=== PATIENT | male | born 1990 | race African-American/Black ===

== ENCOUNTER 2018-02-01 01:39 | Emergency (ER) | payer BC ==
[2018-02-01 02:23] VITALS: BP 128/72; PULSE 77; TEMP 98.3; BMI 25.1
[2018-02-01 02:37] LABS: URINE APPEARANCE CLEAR; URINE BILIRUBIN NEGATIVE (<2.0 mg/dL); URINE COLOR LTYELLOW; URINE GLUCOSE (UA) NEGATIVE (NEGATIVE); URINE KETONE NEGATIVE (NEGATIVE); URINE LEUK ESTERASE NEGATIVE (NEGATIVE); URINE NITRITE NEGATIVE (NEGATIVE); URINE PROTEIN NEGATIVE (NEGATIVE)
--- NOTE | 2018-02-01 03:09 | PDOC ---
History of Present Illness - General Chief Complaint: Pain Stated Complaint: GENTIAL PAIN Time Seen by Provider: 02/01/18 01:49 History Source: Patient Exam Limitations: No Limitations - History of Present Illness Initial Comments: 02/01/18 03:12 28 yo M w a hx of asthma is here after 3 days of a rash on his penis. The rash is painful and wakes him up from sleep at night. He tried using A&D cream for the rash but it made it worse. He denies any hx of STD's He is sexually active in a monogomous relationship. Denies any recent fevers, chills, or infections. Denies dysuria, urgency, frequency. 02/01/18 03:13 02/01/18 04:43 02/01/18 04:43 Timing/Duration: 1 week Severity: mild Associated Symptoms: reports: denies symptoms Past History - Past Medical History Allergies/Adverse Reactions: Allergies Allergy/AdvReac Type Severity Reaction Status Date / Time No Known Allergies Allergy Verified 02/01/18 02:21 Home Medications: Ambulatory Orders Doxycycline Hyclate 100 mg PO BID #14 tablet 02/01/18 Doxycycline Hyclate 100 mg PO BID #14 tablet 02/01/18 Asthma: Yes COPD: No - Immunization History Immunization Up to Date: Yes - Suicide/Smoking/Psychosocial Hx Smoking History: Never smoked Have you smoked in the past 12 months: No Information on smoking cessation initiated: No Hx Alcohol Use: No Drug/Substance Use Hx: No Substance Use Type: None Review of Systems - Review of Systems Comments:: 02/01/18 04:44 Absent: fever, chills, diaphoresis, generalized weakness, malaise, loss of appetite HEENT: Absent: rhinorrhea, nasal congestion, throat pain, throat swelling, difficulty swallowing, mouth swelling, ear pain, eye pain, visual Changes CARDIOVASCULAR: Absent: chest pain, syncope, palpitations, irregular heart rate, lightheadedness , peripheral edema RESPIRATORY: Absent: cough, shortness of breath, dyspnea with exertion, orthopnea, wheezing, stridor, hemoptysis GASTROINTESTINAL: Absent: abdominal pain, abdominal distension, nausea, vomiting, diarrhea, constipation, melena, hematochezia GENITOURINARY: Positive: Genital pain Absent: dysuria, frequency, urgency, hesitancy, hematuria, flank pain MUSCULOSKELETAL: Absent: myalgia, arthralgia, joint swelling SKIN: Absent: rash, itching, pallor HEMATOLOGIC/IMMUNOLOGIC: Absent: easy bleeding, easy bruising, lymphadenopathy, frequent infections ENDOCRINE: Absent: unexplained weight gain, unexplained weight loss, heat intolerance, cold intolerance NEUROLOGIC: Absent: headache, focal weakness or paresthesias, dizziness, unsteady gait, seizure, mental status changes, bladder or bowel incontinence PSYCHIATRIC: Absent: anxiety, depression, suicidal or homicidal ideation, hallucinations. *Physical Exam - Vital Signs Last Vital Signs Temp Pulse Resp BP Pulse Ox 98.3 F 77 20 128/72 99 02/01/18 01:40 02/01/18 01:40 02/01/18 01:40 02/01/18 01:40 02/01/18 01:40 - Physical Exam Comments: 02/01/18 04:45 Penis: Multiple punched out painless ulcers on the dorsal shaft of the penis. One ulcer on the Glans. (NOT on an erythematous base). Bilateral tender inguinal lymphadenopathy. GENERAL: Well developed, well nourished. Awake and alert. No acute distress. HEENT: Normocephalic, atraumatic. PERRLA, EOMI. No conjunctival pallor. Sclera are non- icteric. Moist mucous membranes. Oropharynx is clear. NECK: Supple. Full ROM. No JVD. Carotid pulses 2+ and symmetric, without bruits. No thyromegaly. No lymphadenopathy. CARDIOVASCULAR: Regular rate and rhythm. No murmurs, rubs, or gallops. Distal pulses are 2+ and symmetric. PULMONARY: No evidence of respiratory distress. Lungs clear to auscultation bilaterally. No wheezing, rales or rhonchi. ABDOMINAL: Soft. Non-tender. Non-distended. No rebound or guarding. No organomegaly. Normoactive bowel sounds. MUSCULOSKELETAL Normal range of motion at all joints. No bony deformities or tenderness. No CVA tenderness. EXTREMITIES: No cyanosis. No clubbing. No edema. No calf tenderness. SKIN: Warm and dry. Normal capillary refill. No rashes. No jaundice. NEUROLOGICAL: Alert, awake, appropriate. Cranial nerves 2-12 intact. No deficits to light touch and temperature in face, upper extremities and lower extremities. No motor deficits in the in face, upper extremities and lower extremities. Normoreflexic in the upper and lower extremities. Normal speech. Toes are down-going bilaterally. Gait is normal without ataxia. PSYCHIATRIC: Cooperative. Good eye contact. Appropriate mood and affect. ED Treatment Course - ADDITIONAL ORDERS Additional order review: Laboratory Results 02/01/18 02:25 Urine Color Ltyellow Urine Appearance Clear Urine pH 6.0 Ur Specific [place] 1.017 Urine Protein Negative Urine Glucose (UA) Negative Urine Ketones Negative Urine Blood Negative Urine Nitrite Negative Urine Bilirubin Negative Urine Urobilinogen 2.0 Ur Leukocyte Esterase Negative Medical Decision Making - Medical Decision Making 02/01/18 04:47 28 yo M w a hx of asthma is here after 3 days of a rash on his penis. The rash is painful and wakes him up from sleep at night. Multiple punched out painless ulcers on the dorsal shaft of the penis. One ulcer on the Glans. (NOT on an erythematous base). Bilateral tender inguinal lymphadenopathy. This could be syphilis. Sent in chlamydia and GC amplification test. Urine showed no signs of a UTI. Plan is to DC patient with a prescription for doxy to treat the probable infectious disease. 02/01/18 04:47 02/01/18 04:48 *DC/Admit/Observation/Transfer Diagnosis at time of Disposition: Pain, Penile anomalies - Discharge Dispostion Disposition: ELOPED Condition at time of disposition: Stable Decision to Admit order: No - Prescriptions Prescriptions: Doxycycline Hyclate 100 mg PO BID #14 tablet Doxycycline Hyclate 100 mg PO BID #14 tablet - Referrals - Patient Instructions - Post Discharge Activity
--- NOTE | 2018-02-01 04:08 | PDOC ---
Attending Attestation - Resident Resident Name: Gerardo Hernandez - ED Attending Attestation I have performed the following: I have examined & evaluated the patient, The case was reviewed & discussed with the resident, I agree w/resident's findings & plan, Exceptions are as noted - HPI HPI: 02/01/18 03:01 28y M presents with penile rash x 3 days, painful. sexually active with monogmous relationship no discharge no fever no testicular pain no hx of stds no high risk behavior - Physicial Exam PE: 02/01/18 04:11 penile exam: small punched out lesions/ulcers primarily on dorsal aspect of penis, not erythemadous appearing, no rolled edges, b/l inguinal lympadenopathy , no penile discharge. no signs of vesicles, - Medical Decision Making possible chancroid will send RPR * GC and treat with doxy will have pt fu with urology return precautions were discussed 02/01/18 2:22 pt eloped prior to final disposition
== END 2018-02-01 04:14 | disposition left against medical advice (07) ==
LOC: JER 01:39
DX: N48.89 Other specified disorders of penis (principal); J45.909 Unspecified asthma, uncomplicated
CPT/HCPCS: 36415; 81003; 87086; 87491; 87591; 99282-25